=== PATIENT | female | born 1955 | race Caucasian/White ===

== ENCOUNTER 2019-07-30 18:56 | Inpatient (IN) | payer MEDICAID, OTHER ==
[~2019-07-30] VITALS: Ht 160 cm; Wt 79.8 kg
[~2019-07-30 18:56] MED LIST: CALCIUM VIT D; GABA-529 PO; HUMULIN N SUBCUT; HUMULIN R; LEVO50TA8 PO
[2019-07-30] MEDS ORDERED: SODIUM CHLORIDE 0.9% 1,000 ML IV ONE (19:55)
[2019-07-30] MEDS ORDERED: NITROGLYCERIN 0.4MG TABLET SL SL ONE (20:15)
[2019-07-30] MEDS ORDERED: NITROGLYCERIN 50MG PREMIX 250 ML IV ONE ×2 (20:15→21:30)
[2019-07-30] MEDS ORDERED: FUROSEMIDE 40MG/4ML VIAL IVP ONE (20:15)
[2019-07-30] MEDS ORDERED: NITROGLYCERIN OINT 1GM/INCH UDPKT TD ONE (20:45)
[2019-07-30 20:56] LABS: HEMATOCRIT. 28.6 % (36.0-48.0); HEMOGLOBIN. 9.7 g/dL (12.0-16.0); MEAN PLATELET VOLUME 8.6 fl (7.4-10.4); PLATELET 259 x1000/uL (130-400); RED BLOOD CELL COUNT 2.94 mill/uL (4.2-5.4); RED CELL DISTRIBUTION WIDTH 15.9 % (11.6-14.6)
[2019-07-30 20:58] LABS: CHLORIDE 104 mEq/L (98-107)
[2019-07-30 21:00] LABS: INR 1.1
[2019-07-30 21:08] LABS: BETA HYDROXYBUTYRATE 0.1 mMol/L (0.0-0.3)
[2019-07-30 21:12] LABS: PLATELET ESTIMATE NORMAL
[2019-07-30] MEDS ORDERED: AZITHROMYCIN 500 MG in DEXT 5% WATER 250 ML IV STA (21:23)
[2019-07-30] MEDS ORDERED: CEFTRIAXONE 1 G PREMIX 50 ML IV ONE (21:30)
[2019-07-30 21:43] LABS: BG BILEVEL POS AIRWAY PRESSURE 15/5; BG CARBOXYHEMOGLOBIN 0.3 % (0.5-1.5); BG FRACTION INSPIRED OXYGEN 40; BG HCO3 ACT 18.2 mmol/L (22.0-26.0); BG OXYHEMOGLOBIN 97.7 % (94.0-97.0); BG PCO2 31.3 mmHg (35.0-45.0); BG PH 7.382 (7.350-7.450); BG PO2 130.4 mmHg (75.0-100.0); BG SAMPLE SITE RIGHT RADIAL; BG TOTAL HEMOGLOBIN 10.3 g/dL (12.0-18.0); BG VENT MODE MASK - BIPAP; BG VENT RATE 20 set
[2019-07-30 21:47] LABS: CLARITY URINE CLEAR (CLEAR); COLOR URINE YELLOW (YELLOW); KETONES URINE TRACE (NEGATIVE); LEUKOCYTE ESTERASE URINE NEGATIVE (NEGATIVE); NITRITE URINE NEGATIVE (NEGATIVE); OCCULT BLOOD URINE NEGATIVE (NEGATIVE); PROTEIN URINE 4+ (NEGATIVE); UROBILINOGEN URINE 0.2 E.U./dL (0.2-1.0)
[2019-07-31] MEDS: MORPHINE SULFATE 2 MG/ML CPJ (NOT FOR IM USE) IV PRN (03:02)
[2019-07-31] MEDS: HYDROCODONE/ACETAMINOPHEN 10/325MG TABLET PO PRN ×2 (03:52→17:28)
[2019-07-31] MEDS ORDERED: DEXTROSE 50% WATER 50ML SYRINGE IV PRN (08:00)
[2019-07-31] MEDS ORDERED: ONDANSETRON HCL 4MG/2ML INJ IV PRN (08:00)
[2019-07-31] MEDS ORDERED: LEVOFLOXACIN 500MG PREMIX 100 ML IV NR (11:45)
[2019-07-31] MEDS: FUROSEMIDE 40MG/4ML VIAL IVP SCH ×2 (12:21→17:27)
[2019-07-31] MEDS: AMLODIPINE 5MG TABLET PO SCH ×2 (12:21→20:22)
[2019-07-31] MEDS: INSULIN LISPRO 100 UNITS/ML SUBCUT SCH ×3 (12:29→20:23)
[2019-07-31 15:10] LABS: T4 FREE 0.34 ng/dL (0.76-1.46)
[2019-07-31 15:16] LABS: CREATINE KINASE MB FRACTION 1.7 ng/mL (0.5-3.6)
[2019-07-31 16:00] VITALS: BP 160/90
[2019-07-31 16:23] VITALS: BP 170/71
[2019-07-31] MEDS: BLOOD SUGAR DIAGNOSTIC STRIP TEST SCH ×2 (17:28→20:23)
[2019-07-31 18:00] VITALS: BP 163/70
[2019-07-31] MEDS ORDERED: ENOXAPARIN 40MG/0.4ML SYR SUBCUT SCH (18:00)
[2019-07-31 20:00] VITALS: BP 153/78
[2019-07-31 22:00] VITALS: BP 159/75
[2019-08-01] VITALS (14 sets, daily range): BP systolic 148–184; BP diastolic 65–89
[2019-08-01 00:03] LABS: CREATINE KINASE MB FRACTION 1.8 ng/mL (0.5-3.6)
[2019-08-01] MEDS: BLOOD SUGAR DIAGNOSTIC STRIP TEST SCH ×4 (05:55→20:42)
[2019-08-01] MEDS: FUROSEMIDE 40MG/4ML VIAL IVP SCH (08:21)
[2019-08-01] MEDS ORDERED: NITROGLYCERIN OINT 1GM/INCH UDPKT TD ONE (08:30)
[2019-08-01 08:38] LABS: BG BASE EXCESS -6.6 mmol/L (-2.0-2.0); BG BILEVEL POS AIRWAY PRESSURE 15/5; BG CARBOXYHEMOGLOBIN 0.3 % (0.5-1.5); BG FRACTION INSPIRED OXYGEN 100; BG HCO3 ACT 18.5 mmol/L (22.0-26.0); BG METHEMOGLOBIN 0.2 % (0.0-1.5); BG OXYHEMOGLOBIN 97.5 % (94.0-97.0); BG PCO2 35.4 mmHg (35.0-45.0); BG PH 7.336 (7.350-7.450); BG PO2 125.6 mmHg (75.0-100.0); BG SAMPLE SITE LEFT RADIAL; BG TOTAL HEMOGLOBIN 10.7 g/dL (12.0-18.0); BG VENT MODE MASK - BIPAP
[2019-08-01] MEDS: MORPHINE SULFATE 2 MG/ML CPJ (NOT FOR IM USE) IV PRN (08:50)
[2019-08-01] MEDS: INSULIN LISPRO 100 UNITS/ML SUBCUT SCH ×4 (08:51→20:44)
[2019-08-01] MEDS: AMLODIPINE 5MG TABLET PO SCH ×2 (08:52→20:37)
[2019-08-01] MEDS ORDERED: NITROGLYCERIN OINT 1GM/INCH UDPKT TD NR (09:00)
[2019-08-01] MEDS ORDERED: FUROSEMIDE 40MG/4ML VIAL IVP SCH ×3 (09:15→16:00)
[2019-08-01] MEDS ORDERED: LEVOFLOXACIN 250MG PREMIX 50 ML IV SCH (11:00)
[2019-08-01] MEDS: HYDROCODONE/ACETAMINOPHEN 10/325MG TABLET PO PRN ×2 (11:28→17:28)
[2019-08-01] MEDS: CLONIDINE 0.1MG TABLET PO SCH ×2 (12:50→21:35)
[2019-08-01] MEDS: NITROGLYCERIN OINT 1GM/INCH UDPKT TD SCH ×2 (12:50→21:41)
[2019-08-01] MEDS ORDERED: LEVOTHYROXINE SODIUM 100MCG TABLET PO NR (13:45)
[2019-08-01] MEDS ORDERED: NITROGLYCERIN OINT 1GM/INCH UDPKT TD SCH (14:00)
[2019-08-01] MEDS ORDERED: CLONIDINE 0.1MG TABLET PO SCH (14:00)
[2019-08-01] MEDS ORDERED: IPRATROPIUM/ALBUTEROL 0.5-3(2.5)MG/3ML NEB HHN PRN (14:45)
[2019-08-01 15:19] LABS: HEMATOCRIT. 25.6 % (36.0-48.0); HEMOGLOBIN. 9.1 g/dL (12.0-16.0); MEAN CORPUSCULAR HEMOGLOBIN 36.1 pg (28.0-32.0); MEAN CORPUSCULAR VOLUME 101.7 fL (81.0-99.0); MEAN PLATELET VOLUME 9.3 fl (7.4-10.4); PLATELET 222 x1000/uL (130-400); RED BLOOD CELL COUNT 2.52 mill/uL (4.2-5.4); RED CELL DISTRIBUTION WIDTH 15.5 % (11.6-14.6)
[2019-08-01 15:23] LABS: CREATINE KINASE MB FRACTION 1.9 ng/mL (0.5-3.6)
[2019-08-01 16:41] LABS: PLATELET ESTIMATE NORMAL
[2019-08-01] MEDS: FUROSEMIDE 100MG/10ML VIAL IVP SCH (17:28)
[2019-08-01] MEDS: ENOXAPARIN 30MG/0.3ML SYR SUBCUT SCH (20:42)
[2019-08-01] MEDS: IPRATROPIUM/ALBUTEROL 0.5-3(2.5)MG/3ML NEB HHN SCH (21:35)
[2019-08-02] VITALS (13 sets, daily range): BP systolic 136–167; BP diastolic 62–93
[2019-08-02] MEDS: IPRATROPIUM/ALBUTEROL 0.5-3(2.5)MG/3ML NEB HHN SCH ×4 (02:08→21:14)
[2019-08-02] MEDS: FUROSEMIDE 100MG/10ML VIAL IVP SCH ×3 (05:59→20:50)
[2019-08-02] MEDS: CLONIDINE 0.1MG TABLET PO SCH ×3 (06:01→22:37)
[2019-08-02] MEDS: NITROGLYCERIN OINT 1GM/INCH UDPKT TD SCH ×3 (06:01→22:37)
[2019-08-02] MEDS: BLOOD SUGAR DIAGNOSTIC STRIP TEST SCH ×4 (06:01→20:51)
[2019-08-02] MEDS ORDERED: LEVOTHYROXINE SODIUM 50MCG TABLET PO SCH (06:50)
[2019-08-02 07:45] LABS: BASOPHILS % 0.7 % (0.0-2.0); EOSINOPHILS % 3.5 % (0.0-5.0); HEMATOCRIT. 24.6 % (36.0-48.0); HEMOGLOBIN. 8.5 g/dL (12.0-16.0); LYMPHOCYTES % 8.2 % (20.0-50.0); MEAN CORPUSCULAR HEMOGLOBIN 33.6 pg (28.0-32.0); MEAN CORPUSCULAR VOLUME 96.9 fL (81.0-99.0); MEAN PLATELET VOLUME 9.4 fl (7.4-10.4); MONOCYTES % 9.7 % (2.0-8.0); NEUTROPHILS % 77.9 % (40.0-76.0); PLATELET 212 x1000/uL (130-400); RED BLOOD CELL COUNT 2.53 mill/uL (4.2-5.4); RED CELL DISTRIBUTION WIDTH 15.3 % (11.6-14.6)
[2019-08-02 07:51] LABS: CORTISOL 23.6 ucg/dL
[2019-08-02] MEDS: AMLODIPINE 5MG TABLET PO SCH ×2 (08:35→20:50)
[2019-08-02 08:40] LABS: FOLIC ACID (FOLATE) SERUM 12.3 ng/mL (>5.38)
[2019-08-02] MEDS: INSULIN LISPRO 100 UNITS/ML SUBCUT SCH ×4 (08:43→20:59)
[2019-08-02] MEDS: ENOXAPARIN 30MG/0.3ML SYR SUBCUT SCH ×2 (08:46→20:51)
[2019-08-02 09:04] LABS: PHOSPHORUS 1.7 mg/dL (2.5-4.9)
[2019-08-02 09:18] LABS: BG BASE EXCESS -1.8 mmol/L (-2.0-2.0); BG BILEVEL POS AIRWAY PRESSURE 15/5; BG CARBOXYHEMOGLOBIN 0.3 % (0.5-1.5); BG DEOXYHEMOGLOBIN 1.3 % (0.0-5.0); BG FRACTION INSPIRED OXYGEN 60; BG HCO3 ACT 21.7 mmol/L (22.0-26.0); BG METHEMOGLOBIN 0.1 % (0.0-1.5); BG OXYGEN SATURATION 98.7 % (92.0-98.5); BG OXYHEMOGLOBIN 98.3 % (94.0-97.0); BG PH 7.449 (7.350-7.450); BG PO2 149.9 mmHg (75.0-100.0); BG SAMPLE SITE RIGHT RADIAL; BG TOTAL HEMOGLOBIN 9.9 g/dL (12.0-18.0); BG VENT MODE MASK - BIPAP
[2019-08-02] MEDS ORDERED: LACTULOSE 20G/30ML UDC PO SCH (10:00)
[2019-08-02] MEDS ORDERED: SIMETHICONE 80MG TABLET CHEW PO PRN (10:00)
[2019-08-02] MEDS: DOCUSATE SODIUM 100MG CAPSULE PO SCH (10:43)
[2019-08-02] MEDS: HYDROCODONE/ACETAMINOPHEN 10/325MG TABLET PO PRN (10:44)
[2019-08-02] MEDS: LEVOTHYROXINE SODIUM 100MCG TABLET PO SCH (10:45)
[2019-08-02] MEDS: INSULIN GLARGINE UD 100 UNITS/ML SYR SUBCUT SCH (10:58)
[2019-08-02] MEDS: LEVOFLOXACIN 250MG PREMIX 50 ML IV SCH (11:17)
[2019-08-02] MEDS ORDERED: SODIUM PHOS,M-BASIC-D-BASIC 15 MM in DEXT 5% WATER 245 ML IV SCH (12:00)
[2019-08-02 13:17] LABS: PHOSPHORUS 1.7 mg/dL (2.5-4.9)
[2019-08-03] VITALS (12 sets, daily range): BP systolic 140–166; BP diastolic 57–76
[2019-08-03] MEDS: CYANOCOBALAMIN 1000MCG/ML VIAL IM SCH ×2 (00:33→08:51)
[2019-08-03] MEDS: IPRATROPIUM/ALBUTEROL 0.5-3(2.5)MG/3ML NEB HHN SCH ×4 (01:35→21:24)
[2019-08-03] MEDS: HYDROCODONE/ACETAMINOPHEN 10/325MG TABLET PO PRN ×2 (05:04→17:09)
[2019-08-03] MEDS: BLOOD SUGAR DIAGNOSTIC STRIP TEST SCH ×3 (06:19→17:09)
[2019-08-03] MEDS: CLONIDINE 0.1MG TABLET PO SCH ×3 (06:19→22:54)
[2019-08-03] MEDS: LEVOTHYROXINE SODIUM 100MCG TABLET PO SCH (06:19)
[2019-08-03] MEDS: NITROGLYCERIN OINT 1GM/INCH UDPKT TD SCH ×3 (06:20→22:55)
[2019-08-03] MEDS ORDERED: INSULIN LISPRO 100 UNITS/ML SUBCUT SCH (06:50)
[2019-08-03 07:03] LABS: BASOPHILS % 0.9 % (0.0-2.0); EOSINOPHILS % 9.3 % (0.0-5.0); HEMATOCRIT. 24.5 % (36.0-48.0); HEMOGLOBIN. 8.5 g/dL (12.0-16.0); LYMPHOCYTES % 10.1 % (20.0-50.0); MEAN CORPUSCULAR HEMOGLOBIN 33.3 pg (28.0-32.0); MEAN CORPUSCULAR VOLUME 96.2 fL (81.0-99.0); MEAN PLATELET VOLUME 9.5 fl (7.4-10.4); NEUTROPHILS % 70.7 % (40.0-76.0); PLATELET 218 x1000/uL (130-400); RED BLOOD CELL COUNT 2.55 mill/uL (4.2-5.4)
[2019-08-03 07:29] LABS: PHOSPHORUS 1.6 mg/dL (2.5-4.9)
[2019-08-03] MEDS: AMLODIPINE 5MG TABLET PO SCH ×2 (08:49→21:08)
[2019-08-03] MEDS: DOCUSATE SODIUM 100MG CAPSULE PO SCH (08:49)
[2019-08-03] MEDS: FUROSEMIDE 100MG/10ML VIAL IVP SCH ×2 (08:50→21:07)
[2019-08-03] MEDS: ENOXAPARIN 30MG/0.3ML SYR SUBCUT SCH ×2 (08:52→21:08)
[2019-08-03] MEDS: INSULIN LISPRO (LOW DOSE) 100 UNITS/ML SUBCUT SCH ×4 (08:53→17:45)
[2019-08-03] MEDS: INSULIN LISPRO 100 UNITS/ML SUBCUT SCH ×3 (08:54→17:47)
[2019-08-03] MEDS: INSULIN GLARGINE UD 100 UNITS/ML SYR SUBCUT SCH (09:47)
[2019-08-03] MEDS ORDERED: POTASSIUM PHOS,M-BASIC-D-BASIC 30 MMOL in SODIUM CHLORIDE 0.9% 500 ML IV NR (10:00)
[2019-08-03] MEDS: LEVOFLOXACIN 250MG PREMIX 50 ML IV SCH (11:56)
[2019-08-03] MEDS ORDERED: LACTULOSE 20G/30ML UDC PO PRN (14:00)
[2019-08-04] VITALS (11 sets, daily range): BP systolic 121–159; BP diastolic 53–92
[2019-08-04] MEDS: HYDROCODONE/ACETAMINOPHEN 10/325MG TABLET PO PRN (00:07)
[2019-08-04] MEDS: IPRATROPIUM/ALBUTEROL 0.5-3(2.5)MG/3ML NEB HHN SCH ×4 (01:25→20:53)
[2019-08-04] MEDS: BLOOD SUGAR DIAGNOSTIC STRIP TEST SCH ×3 (06:18→17:34)
[2019-08-04] MEDS: NITROGLYCERIN OINT 1GM/INCH UDPKT TD SCH ×3 (06:18→21:26)
[2019-08-04] MEDS: LEVOTHYROXINE SODIUM 100MCG TABLET PO SCH (06:18)
[2019-08-04] MEDS: CLONIDINE 0.1MG TABLET PO SCH ×3 (06:18→21:26)
[2019-08-04] MEDS: INSULIN LISPRO (LOW DOSE) 100 UNITS/ML SUBCUT SCH ×3 (06:20→17:42)
[2019-08-04] MEDS: INSULIN LISPRO 100 UNITS/ML SUBCUT SCH ×3 (06:21→17:43)
[2019-08-04 08:04] LABS: BASOPHILS % 1.2 % (0.0-2.0); EOSINOPHILS % 12.9 % (0.0-5.0); HEMATOCRIT. 25.5 % (36.0-48.0); HEMOGLOBIN. 8.9 g/dL (12.0-16.0); LYMPHOCYTES % 16.9 % (20.0-50.0); MEAN CORPUSCULAR HEMOGLOBIN 33.1 pg (28.0-32.0); MEAN CORPUSCULAR VOLUME 94.9 fL (81.0-99.0); MEAN PLATELET VOLUME 9.3 fl (7.4-10.4); MONOCYTES % 7.9 % (2.0-8.0); NEUTROPHILS % 61.1 % (40.0-76.0); PLATELET 229 x1000/uL (130-400); RED BLOOD CELL COUNT 2.68 mill/uL (4.2-5.4); RED CELL DISTRIBUTION WIDTH 14.8 % (11.6-14.6)
[2019-08-04 08:37] LABS: PHOSPHORUS 2.3 mg/dL (2.5-4.9)
[2019-08-04] MEDS: AMLODIPINE 5MG TABLET PO SCH ×2 (08:54→20:09)
[2019-08-04] MEDS: FUROSEMIDE 100MG/10ML VIAL IVP SCH (08:55)
[2019-08-04] MEDS: ENOXAPARIN 30MG/0.3ML SYR SUBCUT SCH ×2 (08:55→21:25)
[2019-08-04] MEDS: CYANOCOBALAMIN 1000MCG/ML VIAL IM SCH (08:55)
[2019-08-04] MEDS: DOCUSATE SODIUM 100MG CAPSULE PO SCH (09:02)
[2019-08-04] MEDS: ACETAMINOPHEN 325MG TABLET PO PRN ×2 (09:04→20:09)
[2019-08-04 09:11] LABS: VITAMIN D 25-OH 20.2 ng/mL (30.0-100.0)
[2019-08-04] MEDS: INSULIN GLARGINE UD 100 UNITS/ML SYR SUBCUT SCH (12:56)
[2019-08-04 13:24] LABS: BG BASE EXCESS 0.6 mmol/L (-2.0-2.0); BG CARBOXYHEMOGLOBIN 0.3 % (0.5-1.5); BG DEOXYHEMOGLOBIN 9.3 % (0.0-5.0); BG FRACTION INSPIRED OXYGEN 21; BG HCO3 ACT 23.6 mmol/L (22.0-26.0); BG METHEMOGLOBIN 0.1 % (0.0-1.5); BG OXYGEN SATURATION 90.7 % (92.0-98.5); BG OXYHEMOGLOBIN 90.3 % (94.0-97.0); BG PCO2 31.8 mmHg (35.0-45.0); BG PH 7.488 (7.350-7.450); BG PO2 57.8 mmHg (75.0-100.0); BG SAMPLE SITE RIGHT RADIAL; BG TOTAL HEMOGLOBIN 9.8 g/dL (12.0-18.0); BG VENT MODE NASAL CANNULA
[2019-08-04] MEDS ORDERED: ERGOCALCIFEROL 50000UNITS CAPSULE PO SCH (18:00)
[2019-08-04] MEDS: FUROSEMIDE 40MG TABLET PO SCH (20:10)
[2019-08-05] VITALS (12 sets, daily range): BP systolic 140–168; BP diastolic 58–86
[2019-08-05] MEDS: HYDROCODONE/ACETAMINOPHEN 10/325MG TABLET PO PRN (02:09)
[2019-08-05] MEDS: IPRATROPIUM/ALBUTEROL 0.5-3(2.5)MG/3ML NEB HHN SCH ×4 (02:25→21:33)
[2019-08-05] MEDS: LEVOTHYROXINE SODIUM 100MCG TABLET PO SCH (05:57)
[2019-08-05] MEDS: BLOOD SUGAR DIAGNOSTIC STRIP TEST SCH ×3 (05:59→17:32)
[2019-08-05] MEDS: NITROGLYCERIN OINT 1GM/INCH UDPKT TD SCH ×3 (05:59→21:18)
[2019-08-05] MEDS: CLONIDINE 0.1MG TABLET PO SCH ×3 (05:59→21:17)
[2019-08-05 06:11] LABS: BASOPHILS % 1.3 % (0.0-2.0); EOSINOPHILS % 13.1 % (0.0-5.0); HEMATOCRIT. 27.8 % (36.0-48.0); HEMOGLOBIN. 9.6 g/dL (12.0-16.0); LYMPHOCYTES % 20.2 % (20.0-50.0); MEAN CORPUSCULAR HEMOGLOBIN 32.7 pg (28.0-32.0); MEAN CORPUSCULAR VOLUME 94.7 fL (81.0-99.0); MEAN PLATELET VOLUME 8.9 fl (7.4-10.4); MONOCYTES % 7.5 % (2.0-8.0); NEUTROPHILS % 57.9 % (40.0-76.0); PLATELET 256 x1000/uL (130-400); RED BLOOD CELL COUNT 2.93 mill/uL (4.2-5.4); RED CELL DISTRIBUTION WIDTH 15.2 % (11.6-14.6)
[2019-08-05 08:36] LABS: BG BASE EXCESS 3.2 mmol/L (-2.0-2.0); BG CARBOXYHEMOGLOBIN 0.3 % (0.5-1.5); BG DEOXYHEMOGLOBIN 9.1 % (0.0-5.0); BG FRACTION INSPIRED OXYGEN 21; BG HCO3 ACT 26.5 mmol/L (22.0-26.0); BG METHEMOGLOBIN 0.2 % (0.0-1.5); BG OXYGEN SATURATION 90.9 % (92.0-98.5); BG OXYHEMOGLOBIN 90.4 % (94.0-97.0); BG PCO2 35.7 mmHg (35.0-45.0); BG PH 7.489 (7.350-7.450); BG PO2 55.8 mmHg (75.0-100.0); BG SAMPLE SITE RIGHT RADIAL; BG TOTAL HEMOGLOBIN 9.9 g/dL (12.0-18.0); BG VENT MODE ROOM AIR
[2019-08-05] MEDS ORDERED: CYANOCOBALAMIN 1000MCG/ML VIAL IM SCH (09:00)
[2019-08-05] MEDS: FUROSEMIDE 40MG TABLET PO SCH ×2 (09:02→21:17)
[2019-08-05] MEDS: DOCUSATE SODIUM 100MG CAPSULE PO SCH (09:03)
[2019-08-05] MEDS: AMLODIPINE 5MG TABLET PO SCH ×2 (09:05→21:17)
[2019-08-05] MEDS: ENOXAPARIN 30MG/0.3ML SYR SUBCUT SCH ×2 (09:05→21:16)
[2019-08-05] MEDS: INSULIN LISPRO (LOW DOSE) 100 UNITS/ML SUBCUT SCH ×3 (09:06→17:49)
[2019-08-05] MEDS: INSULIN LISPRO 100 UNITS/ML SUBCUT SCH ×3 (09:07→17:50)
[2019-08-05] MEDS: ACETAMINOPHEN 325MG TABLET PO PRN ×2 (10:32→21:17)
[2019-08-05] MEDS: INSULIN GLARGINE UD 100 UNITS/ML SYR SUBCUT SCH (10:33)
[2019-08-05] MEDS ORDERED: SODIUM PHOS,M-BASIC-D-BASIC 20 MM in DEXT 5% WATER 243.3333 ML IV NR (11:00)
[2019-08-05] MEDS ORDERED: LIDOCAINE HCL 1% 20ML VIAL (Pyxis) INJ ONE (11:22)
[2019-08-05] MEDS: LEVOFLOXACIN 250MG TABLET PO SCH (11:27)
[2019-08-05] MEDS ORDERED: SODIUM PHOS,M-BASIC-D-BASIC 30 MM in DEXT 5% WATER 500 ML IV SCH (14:00)
[2019-08-06] VITALS (9 sets, daily range): BP systolic 153–166; BP diastolic 63–74
[2019-08-06] MEDS ORDERED: NIFE60TA64 MT (00:05)
[2019-08-06] MEDS ORDERED: ASPI-1393 PO (00:12)
[2019-08-06] MEDS ORDERED: LOSA100T32 PO (00:12)
[2019-08-06] MEDS ORDERED: ATOR-2 PO (00:12)
[2019-08-06] MEDS ORDERED: CLOP75TA33 PO (00:12)
[2019-08-06] MEDS ORDERED: METF-816 PO (00:12)
[2019-08-06] MEDS ORDERED: LEVO25TA7 PO (00:12)
[2019-08-06] MEDS ORDERED: FURO40TA5 MT (00:12)
[2019-08-06] MEDS ORDERED: HYDR-4134 PO (00:12)
[2019-08-06] MEDS ORDERED: FERR325T6 PO (00:12)
[2019-08-06] MEDS ORDERED: MEDR10TA11 PO (00:12)
[2019-08-06] MEDS ORDERED: CARV25TA47 PO (00:12)
[2019-08-06] MEDS ORDERED: AMI2 PO (00:12)
[2019-08-06] MEDS: IPRATROPIUM/ALBUTEROL 0.5-3(2.5)MG/3ML NEB HHN SCH ×2 (01:20→11:57)
[2019-08-06] MEDS: ACETAMINOPHEN 325MG TABLET PO PRN ×2 (02:33→12:52)
[2019-08-06] MEDS: NITROGLYCERIN OINT 1GM/INCH UDPKT TD SCH (06:00)
[2019-08-06] MEDS: CLONIDINE 0.1MG TABLET PO SCH ×2 (06:07→13:41)
[2019-08-06] MEDS: LEVOTHYROXINE SODIUM 100MCG TABLET PO SCH (06:07)
[2019-08-06] MEDS: BLOOD SUGAR DIAGNOSTIC STRIP TEST SCH ×2 (06:50→11:37)
[2019-08-06 07:19] LABS: PHOSPHORUS 2.3 mg/dL (2.5-4.9)
[2019-08-06 07:23] LABS: HEMATOCRIT. 27.7 % (36.0-48.0); HEMOGLOBIN. 9.8 g/dL (12.0-16.0); MEAN CORPUSCULAR HEMOGLOBIN 33.3 pg (28.0-32.0); MEAN CORPUSCULAR VOLUME 94.1 fL (81.0-99.0); MEAN PLATELET VOLUME 9.3 fl (7.4-10.4); PLATELET 250 x1000/uL (130-400); RED BLOOD CELL COUNT 2.95 mill/uL (4.2-5.4)
[2019-08-06] MEDS: AMLODIPINE 5MG TABLET PO SCH (08:10)
[2019-08-06] MEDS: FUROSEMIDE 40MG TABLET PO SCH (08:10)
[2019-08-06] MEDS: DOCUSATE SODIUM 100MG CAPSULE PO SCH (08:10)
[2019-08-06] MEDS: ENOXAPARIN 30MG/0.3ML SYR SUBCUT SCH (08:11)
[2019-08-06] MEDS: INSULIN LISPRO 100 UNITS/ML SUBCUT SCH ×2 (08:12→12:45)
[2019-08-06] MEDS: INSULIN LISPRO (LOW DOSE) 100 UNITS/ML SUBCUT SCH ×2 (08:12→12:43)
[2019-08-06 09:08] LABS: BG BASE EXCESS 0.9 mmol/L (-2.0-2.0); BG CARBOXYHEMOGLOBIN 0.2 % (0.5-1.5); BG DEOXYHEMOGLOBIN 3.5 % (0.0-5.0); BG FRACTION INSPIRED OXYGEN 21; BG HCO3 ACT 23.8 mmol/L (22.0-26.0); BG METHEMOGLOBIN 0.3 % (0.0-1.5); BG OXYGEN SATURATION 96.5 % (92.0-98.5); BG PCO2 32.2 mmHg (35.0-45.0); BG PH 7.486 (7.350-7.450); BG PO2 86.2 mmHg (75.0-100.0); BG SAMPLE SITE RIGHT BRACHIAL; BG TOTAL HEMOGLOBIN 11.3 g/dL (12.0-18.0); BG VENT MODE ROOM AIR
[2019-08-06] MEDS ORDERED: INSULIN GLARGINE UD 100 UNITS/ML SYR SUBCUT SCH (10:00)
[2019-08-06] MEDS: LEVOFLOXACIN 250MG TABLET PO SCH (10:45)
[2019-08-06] MEDS ORDERED: MAGNESIUM OXIDE 400MG TABLET PO SCH (11:45)
[2019-08-06] MEDS ORDERED: FURO80TA87 MT (12:38)
[2019-08-06] MEDS ORDERED: LEVO100T MT (12:38)
[2019-08-06 13:10] LABS: ANTI-PARIETAL CELL AB 25.1 Units (0.0-20.0)
[2019-08-06] MEDS ORDERED: HYDRALAZINE HCL 25MG TABLET PO SCH (14:00)
[2019-08-06 15:40] LABS: PLATELET ESTIMATE NORMAL
[2019-08-07 06:10] LABS: A/G RATIO 0.8 (0.7-1.7); ALBUMIN 2.9 g/dL (2.9-4.4); ALPHA-1-GLOBULIN 0.3 g/dL (0.0-0.4); BETA GLOBULIN 1.1 g/dL (0.7-1.3); GAMMA GLOBULINS 1.2 g/dL (0.4-1.8); GLOBULIN TOTAL 3.7 g/dL (2.2-3.9); M-SPIKE Not Observed g/dL (Not Observed); TOTAL PROTEIN SERUM 6.6 g/dL (6.0-8.5)
== END 2019-08-06 15:49 | disposition home health service (06) | DRG 720 ==
LOC: ER 18:56 → EDBEDREQ 22:55 → EDBEDREQTM 22:55 → ENRESERV 07-31 12:29 → 3WST 07-31 16:34
PROVIDERS: ADMIT Internal Medicine; ATTEND Internal Medicine
PROC: 5A09357 Assistance with Respiratory Ventilation, Less than 24 Consecutive Hours, Continuous Positive Airway Pressure (ICD-10-PCS; principal; 2019-07-31)
PROC: 5A09357 Assistance with Respiratory Ventilation, Less than 24 Consecutive Hours, Continuous Positive Airway Pressure (ICD-10-PCS; 2019-07-31)
PROC: 5A09357 Assistance with Respiratory Ventilation, Less than 24 Consecutive Hours, Continuous Positive Airway Pressure (ICD-10-PCS; 2019-07-31)
PROC: 5A09357 Assistance with Respiratory Ventilation, Less than 24 Consecutive Hours, Continuous Positive Airway Pressure (ICD-10-PCS; 2019-07-31)
PROC: 5A09357 Assistance with Respiratory Ventilation, Less than 24 Consecutive Hours, Continuous Positive Airway Pressure (ICD-10-PCS; 2019-07-31)
DX: A41.9 Sepsis, unspecified organism (principal); J96.21 Acute and chronic respiratory failure with hypoxia; I50.33 Acute on chronic diastolic (congestive) heart failure; N17.9 Acute kidney failure, unspecified; E87.2 Acidosis; E11.22 Type 2 diabetes mellitus with diabetic chronic kidney disease; J18.9 Pneumonia, unspecified organism; I13.0 Hypertensive heart and chronic kidney disease with heart failure and stage 1 through stage 4 chronic kidney disease, or unspecified chronic kidney disease; I48.91 Unspecified atrial fibrillation; E87.1 Hypo-osmolality and hyponatremia; D64.9 Anemia, unspecified; Z53.29 Procedure and treatment not carried out because of patient's decision for other reasons; E03.9 Hypothyroidism, unspecified; E11.65 Type 2 diabetes mellitus with hyperglycemia; E53.8 Deficiency of other specified B group vitamins; E55.9 Vitamin D deficiency, unspecified; E66.9 Obesity, unspecified; E78.00 Pure hypercholesterolemia, unspecified; E78.5 Hyperlipidemia, unspecified; G89.29 Other chronic pain; K59.00 Constipation, unspecified; N18.2 Chronic kidney disease, stage 2 (mild); M54.9 Dorsalgia, unspecified; N39.0 Urinary tract infection, site not specified; Z79.01 Long term (current) use of anticoagulants; Z79.890 Hormone replacement therapy; Z68.31 Body mass index [BMI] 31.0-31.9, adult; Z82.49 Family history of ischemic heart disease and other diseases of the circulatory system; Z83.3 Family history of diabetes mellitus; Z79.899 Other long term (current) drug therapy; Z71.89 Other specified counseling
CPT/HCPCS: 36415; 36600; 71045; 71250; 76770; 78582; 80048; 80061; 81003; 82010; 82306; 82375; 82533; 82550; 82553; 82570; 82607; 82746; 82805; 82962; 83036; 83605; 83735; 83880; 83970; 84100; 84155; 84156; 84165; 84439; 84443; 84484; 85379; 86340; 93005; 93306; 93970; 94640; 94660; 96365; 97162; 97166; 99291; A9558; J0456; J0696; J1650; J1815; J1940; J1956; J2270; J3420; J3490; J7030; J7040; J7060; J7620